=== PATIENT | female | born 1945 | race African-American/Black ===

== ENCOUNTER 2017-10-06 22:47 | Emergency (ER) | payer MEDICARE ==
--- NOTE | 2017-10-07 01:40 | Emergency Department Report ---
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 Mode of arrival: Stretcher Limitations: Language Barrier - History of Present Illness Initial comments: Family osmar patient states she is weak and get out of bed states it hurts to walk here for evaluation of weakness and not quite right today no history of chest pain no headache no stiff neck no fever generalized weakness -: hour(s) Location: generalized Severity: mild, moderate Associated Symptoms: denies: chest pain, dark stools, diaphoresis, easy bruising , fever/chills, headaches, loss of appetite, nausea/vomiting, myalgias, rash, shortness of breath, syncope - Related Data Home Medications Medication Instructions Recorded Confirmed Last Taken Aspirin [Aspirin TAB] 325 mg PO DAILY 01/24/14 12/03/14 Unknown Carvedilol [Coreg] 25 mg PO BID 01/24/14 12/03/14 Unknown Ranitidine HCl [Zantac] 150 mg PO BID 01/24/14 12/03/14 Unknown Zolpidem [Ambien] 5 mg PO QHS 01/24/14 12/03/14 Unknown metFORMIN [Glucophage] 850 mg PO TID 01/24/14 12/03/14 Unknown Ibuprofen [Motrin 400 MG tab] 400 mg PO Q8H PRN 12/03/14 12/03/14 Unknown Loratadine [Claritin] 10 mg PO QDAY 12/03/14 12/03/14 Unknown Previous Rx's Medication Instructions Recorded Last Taken Type Isosorbide Mononitrate [Isosorbide 60 mg PO QDAY #30 tab.er.24h 01/25/14 Unknown Rx Mononitrate ER (IMDUR)] Lisinopril [Zestril TAB] 10 mg PO QDAY #30 tablet 12/04/14 Unknown Rx Rosuvastatin (Nf) [Crestor] 20 mg PO QHS #30 tablet 12/04/14 Unknown Rx Cephalexin [Keflex] 500 mg PO Q6H #28 capsule 12/23/14 Unknown Rx glipiZIDE [glipiZIDE ER] 10 mg PO BID #60 tab.er.24 12/23/14 Unknown Rx Dicyclomine [Bentyl] 10 mg PO QID PRN #20 capsule 07/29/15 Unknown Rx Ondansetron [Zofran Odt] 4 mg PO QID PRN #20 tab.rapdis 07/29/15 Unknown Rx Cephalexin [Keflex] 500 mg PO Q6HR #28 capsule 10/07/17 Unknown Rx Allergies Allergy/AdvReac Type Severity Reaction Status Date / Time No Known Allergies Allergy Unverified 01/24/14 05:59 ED Review of Systems ROS: Stated complaint: UNABLE TO MOVE LEGS Other details as noted in HPI Comment: All other systems reviewed and negative Eyes: denies: eye discharge, vision change ENT: denies: dental pain, hearing loss, epistaxis Respiratory: denies: shortness of breath, SOB with exertion, SOB at rest, stridor, wheezing Cardiovascular: denies: chest pain, palpitations, dyspnea on exertion, orthopnea , edema, syncope, paroxysmal nocturnal dyspnea Gastrointestinal: denies: abdominal pain, nausea, vomiting, diarrhea, constipation, hematemesis, melena, hematochezia Neurological: weakness. denies: headache, numbness, paresthesias, confusion, abnormal gait, vertigo ED Past Medical Hx - Past Medical History Previous Medical History?: Yes Hx Hypertension: Yes Hx Heart Attack/AMI: Yes Hx Diabetes: Yes - Surgical History Past Surgical History?: Yes Hx Coronary Stent: Yes - Social History Smoking Status: Never Smoker Substance Use Type: None - Medications Home Medications: Home Medications Medication Instructions Recorded Confirmed Last Taken Type Aspirin [Aspirin TAB] 325 mg PO DAILY 01/24/14 12/03/14 Unknown History Carvedilol [Coreg] 25 mg PO BID 01/24/14 12/03/14 Unknown History Ranitidine HCl [Zantac] 150 mg PO BID 01/24/14 12/03/14 Unknown History Zolpidem [Ambien] 5 mg PO QHS 01/24/14 12/03/14 Unknown History metFORMIN [Glucophage] 850 mg PO TID 01/24/14 12/03/14 Unknown History Isosorbide Mononitrate [Isosorbide 60 mg PO QDAY #30 tab.er.24h 01/25/14 Unknown Rx Mononitrate ER (IMDUR)] Ibuprofen [Motrin 400 MG tab] 400 mg PO Q8H PRN 12/03/14 12/03/14 Unknown History Loratadine [Claritin] 10 mg PO QDAY 12/03/14 12/03/14 Unknown History Lisinopril [Zestril TAB] 10 mg PO QDAY #30 tablet 12/04/14 Unknown Rx Rosuvastatin (Nf) [Crestor] 20 mg PO QHS #30 tablet 12/04/14 Unknown Rx Cephalexin [Keflex] 500 mg PO Q6H #28 capsule 12/23/14 Unknown Rx glipiZIDE [glipiZIDE ER] 10 mg PO BID #60 tab.er.24 12/23/14 Unknown Rx Dicyclomine [Bentyl] 10 mg PO QID PRN #20 capsule 07/29/15 Unknown Rx Ondansetron [Zofran Odt] 4 mg PO QID PRN #20 tab.rapdis 07/29/15 Unknown Rx Cephalexin [Keflex] 500 mg PO Q6HR #28 capsule 10/07/17 Unknown Rx ED Physical Exam - General Limitations: Language Barrier General appearance: alert - Head Head exam: Present: atraumatic, normocephalic - Eye Eye exam: Present: PERRL, EOMI - ENT ENT exam: Present: normal exam, normal orophraynx - Neck Neck exam: Present: normal inspection. Absent: tenderness, meningismus - Respiratory Respiratory exam: Present: normal lung sounds bilaterally. Absent: respiratory distress, wheezes, rales, rhonchi, stridor, chest wall tenderness, accessory muscle use, decreased breath sounds, prolonged expiratory - Cardiovascular Cardiovascular Exam: Present: regular rate, normal heart sounds. Absent: rubs, gallop - GI/Abdominal GI/Abdominal exam: Present: soft. Absent: distended, tenderness, guarding, rebound, mass, bruit, pulsatile mass - Extremities Exam Extremities exam: Present: normal inspection. Absent: pedal edema, joint swelling, calf tenderness - Back Exam Back exam: Present: other (no warmth or erythema supple neck). Absent: CVA tenderness (R), CVA tenderness (L), paraspinal tenderness, vertebral tenderness - Neurological Exam Neurological exam: Present: alert, CN II-XII intact. Absent: motor sensory deficit - Skin Skin exam: Absent: diaphoretic, erythema, urticaria, vesicles, petechiae, pallor , abrasion, ecchymosis ED Course Vital Signs 10/06/17 10/07/17 10/07/17 23:34 00:01 01:00 Temperature 99.3 F Pulse Rate 72 72 70 Respiratory 12 17 17 Rate Blood Pressure 157/75 160/107 164/74 Blood Pressure 157/75 [Right] O2 Sat by Pulse 98 97 95 Oximetry - Reevaluation(s) Reevaluation #1: 10/07/17 04:25 Family states generalized weakness motor strength is equal family thinks having some pain when she tries to get out of bed and walk more that she was low but less responsive today and here with generalized weakness ED Medical Decision Making - Lab Data Result diagrams: 10/07/17 01:40 10/07/17 01:40 - EKG Data -: EKG Interpreted by Me EKG shows normal: sinus rhythm, ST-T waves (no acute ischemic change) - Radiology Data Radiology results: report reviewed - Medical Decision Making Troponin is negative CT head is no acute process chest x-rays negative abdominal CT and lumbar spine CT are chronic change patient is noted to have a UTI we will discharge her with antibiotics to see her regular doctor in 2 days no acute abdomen at this time no evidence of spinal cord compressive syndrome or other emergent process would require admission or further evaluation is noted at this time she is averse to 5 days follow-up Critical care attestation.: If time is entered above; I have spent that time in minutes in the direct care of this critically ill patient, excluding procedure time. ED Disposition Clinical Impression: UTI (urinary tract infection), Weakness Disposition: DC-01 TO HOME OR SELFCARE Is pt being admited?: No Does the pt Need Aspirin: No Condition: Stable Instructions: Weakness (ED), Urinary Tract Infection in Women (ED) Additional Instructions: return if worse Prescriptions: Cephalexin [Keflex] 500 mg PO Q6HR #28 capsule Referrals: CHRISTI ROBLES MD [Primary Care Provider] - 3-5 Days Time of Disposition: 04:30
[2017-10-07 02:11] LABS: Basophils % (Auto) 0.3 % (0.0-1.8); Eosinophils # (Auto) 0.1 K/mm3 (0.0-0.4); Hematocrit 33.9 % (30.3-42.9); Hemoglobin 11.6 gm/dl (10.1-14.3); Lymphocytes # (Auto) 1.7 K/mm3 (1.2-5.4); Lymphocytes % (Auto) 20.3 % (13.4-35.0); Mean Corpuscular HGB Conc 34 % (30-34); Mean Corpuscular Hemoglobin 31 pg (28-32); Mean Corpuscular Volume 90 fl (79-97); Monocytes # (Auto) 0.9 K/mm3 (0.0-0.8); Monocytes % (Auto) 11.4 % (0.0-7.3); Platelet Count 274 K/mm3 (140-440); Red Blood Count 3.75 M/mm3 (3.65-5.03); Red Cell Distribution Width 13.2 % (13.2-15.2)
[2017-10-07 02:20] LABS: Alanine Aminotransferase 18 units/L (7-56); Albumin 2.9 g/dL (3.9-5); BUN/Creatinine Ratio 37; Blood Urea Nitrogen 22 mg/dL (7-17); Hemolysis Index 6
--- NOTE | 2017-10-07 02:28 | XRay Report ---
FINAL REPORT PROCEDURE: XR CHEST 1V AP TECHNIQUE: Chest radiograph anteroposterior view. CPT 76313 HISTORY: Weakness COMPARISON: No prior studies are available for comparison. FINDINGS: Heart: Normal. Mediastinum/Vessels: Normal. Lungs/Pleural space: Lungs are clear and expanded. There are no infiltrates, effusions or pneumothoraces.. Bony thorax: No acute osseous abnormality. Life support devices: None. IMPRESSION: No acute cardiopulmonary abnormality.
--- NOTE | 2017-10-07 02:30 | Cat Scan Report ---
FINAL REPORT PROCEDURE: CT HEAD/BRAIN WO CON TECHNIQUE: Computerized tomography of the head was performed without contrast material. HISTORY: Weakness COMPARISON: No prior studies are available for comparison. FINDINGS: Skull and scalp: Normal. Paranasal sinuses: Normal. Ventricles and subarachnoid spaces: There is moderate central and cortical atrophy. There is no hydrocephalus.. Cerebrum: No evidence of hemorrhage, acute infarction or mass . Cerebellum and brainstem: No evidence of hemorrhage, acute infarction or mass. Vasculature: Normal. Comments: None. IMPRESSION: There is no acute intracranial abnormality.
[2017-10-07 02:46] LABS: Bilirubin,Urine NEG (Negative); Blood,Urine NEG (Negative); Color,Urine Yellow (Yellow); Mucus,Urine FEW /HPF; Nitrite,Urine NEG (Negative)
--- NOTE | 2017-10-07 02:46 | Cat Scan Report ---
FINAL REPORT PROCEDURE: CT ABDOMEN PELVIS WO CON TECHNIQUE: Computerized axial tomography of the abdomen and pelvis was performed without intravenous contrast. This study is performed without intravascular contrast material and its sensitivity for abdominal and pelvic pathology, including neoplasms, inflammation, abscess, free fluid, thrombosis, arterial dissection and infarction, is reduced compared with a contrast enhanced study. HISTORY: pain COMPARISON: No prior studies are available for comparison. FINDINGS: Visualized lower thorax: No significant abnormality. Liver: Normal size and attenuation. Spleen: Normal size and attenuation. Gallbladder and biliary system: There are gallstones. There is no cholecystitis or biliary ductal dilatation.. Pancreas: Normal. Adrenals: Normal. Kidneys: There are no kidney stones or ureteral stones. There is no hydronephrosis.. GI tract: There is no bowel obstruction, colitis or enteritis. The appendix is normal.. Lymph nodes and mesentery: Normal. Vasculature: There is calcified plaque in the abdominal aorta. There is no aneurysm.. Bladder: The urinary bladder is distended.. Reproductive organs: Normal. Peritoneum: There is no ascites or free air, abscess or adenopathy.. Musculoskeletal structures: No significant abnormality. Other: None. IMPRESSION: There are gallstones. There is no cholecystitis or biliary ductal dilatation.. There are no kidney stones or ureteral stones. There is no hydronephrosis.. There is no bowel obstruction, colitis or enteritis. The appendix is normal.. The urinary bladder is distended.. There is no ascites or free air, abscess or adenopathy.. .
--- NOTE | 2017-10-07 02:58 | Cat Scan Report ---
FINAL REPORT EXAM: CT LUMBAR SPINE WO CON HISTORY: pain COMPARISON: CT of the abdomen and pelvis from the same date. TECHNIQUE: Contiguous axial images were obtained. Additional sagittal and coronal reformatted images were obtained. FINDINGS: Lumbar vertebral body heights are preserved. No acute fracture traumatic subluxation. Marked osteopenia. Mild to moderate endplate osteophyte throughout the lumbar spine. Minimal loss of disc height L5-S1 level. Vacuum disc phenomena L4-L5 level. No significant canal or foraminal narrowing at the T12-L1 and L1-L2 levels. Mild facet changes mild broad-based disc bulge L2-L3 level causing mild canal stenosis and mild foraminal narrowing. L3-L4 level, broad-based disc bulge with facet changes and hypertrophy lumen flavum causing moderate canal stenosis and mild bilateral foraminal narrowing. L4-L5 level, there is a broad-based disc bulge with [id number] facet changes causing moderate canal stenosis. Mild foraminal narrowing bilaterally. L5-S1 level, broad-based disc bulge with endplate osteophyte and facet changes. Mild to moderate canal stenosis. Moderate to severe left and mild right foraminal narrowing. Visualized SI joints are grossly unremarkable. IMPRESSION: No acute fracture traumatic subluxation of the lumbar spine. Moderate degenerative changes of the lumbar spine most pronounced at the L4-L5 and L5-S1 levels. Moderate canal stenosis and mild foraminal narrowing at the L4-L5 level and mild to moderate canal stenosis with moderate severe left and mild right foraminal narrowing at the L5-S1 level.
[2017-10-07 04:31] VITALS: BP 142/45
[2017-10-07] MEDS ORDERED: TYLENOL PO ONE (04:45)
== END 2017-10-07 04:55 | disposition home or self-care (01) ==
LOC: ED 22:47
DX: R53.1 Weakness (principal); N39.0 Urinary tract infection, site not specified; I10 Essential (primary) hypertension; I25.2 Old myocardial infarction; E11.9 Type 2 diabetes mellitus without complications; Z95.818 Presence of other cardiac implants and grafts
CPT/HCPCS: 36415; 70450; 71045; 72131; 74176; 80053; 81001; 84484; 85025; 93005; 93010; 99285

== ENCOUNTER 2017-12-31 13:31 | Emergency (ER) | payer MEDICARE ==
[2017-12-31 14:48] LABS: BUN/Creatinine Ratio 22; Blood Urea Nitrogen 13 mg/dL (7-17); Calcium 9.7 mg/dL (8.4-10.2); Hemolysis Index 18
[2017-12-31 15:25] LABS: Basophils % (Auto) 0.7 % (0.0-1.8); Eosinophils # (Auto) 0.1 K/mm3 (0.0-0.4); Eosinophils % (Auto) 1.3 % (0.0-4.3); Hematocrit 36.5 % (30.3-42.9); Hemoglobin 12.1 gm/dl (10.1-14.3); Lymphocytes # (Auto) 1.7 K/mm3 (1.2-5.4); Lymphocytes % (Auto) 32.3 % (13.4-35.0); Mean Corpuscular HGB Conc 33 % (30-34); Mean Corpuscular Hemoglobin 30 pg (28-32); Mean Corpuscular Volume 90 fl (79-97); Monocytes # (Auto) 0.4 K/mm3 (0.0-0.8); Monocytes % (Auto) 8.1 % (0.0-7.3); Platelet Count 427 K/mm3 (140-440); Red Blood Count 4.08 M/mm3 (3.65-5.03); Red Cell Distribution Width 13.5 % (13.2-15.2)
[2017-12-31] MEDS ORDERED: XYLOCAINE 1% MPF 5 mL INFILTRATI ONE (16:09)
[2017-12-31] MEDS ORDERED: ROCEPHIN IM ONE (16:09)
--- NOTE | 2017-12-31 16:10 | Emergency Department Report ---
- General Chief complaint: Extremity Injury, Lower Stated complaint: LEFT FOOT PAIN Time Seen by Provider: 12/31/17 15:48 Source: family Mode of arrival: Ambulatory Limitations: Language Barrier - History of Present Illness Initial comments: Patient sent here by PCP for left foot pain and redness. -: week(s) (4) Location: L foot Severity: mild Severity scale (0 -10): 4 Quality: burning Consistency: constant Improves with: none Worsens with: palpation, movement Associated symptoms: denies other symptoms Treatments Prior to Arrival: none - Related Data Home Medications Medication Instructions Recorded Confirmed Last Taken Aspirin [Aspirin TAB] 325 mg PO DAILY 01/24/14 12/03/14 Unknown Carvedilol [Coreg] 25 mg PO BID 01/24/14 12/03/14 Unknown Ranitidine HCl [Zantac] 150 mg PO BID 01/24/14 12/03/14 Unknown Zolpidem [Ambien] 5 mg PO QHS 01/24/14 12/03/14 Unknown metFORMIN [Glucophage] 850 mg PO TID 01/24/14 12/03/14 Unknown Ibuprofen [Motrin 400 MG tab] 400 mg PO Q8H PRN 12/03/14 12/03/14 Unknown Loratadine [Claritin] 10 mg PO QDAY 12/03/14 12/03/14 Unknown Previous Rx's Medication Instructions Recorded Last Taken Type Isosorbide Mononitrate [Isosorbide 60 mg PO QDAY #30 tab.er.24h 01/25/14 Unknown Rx Mononitrate ER (IMDUR)] Lisinopril [Zestril TAB] 10 mg PO QDAY #30 tablet 12/04/14 Unknown Rx Rosuvastatin (Nf) [Crestor] 20 mg PO QHS #30 tablet 12/04/14 Unknown Rx Cephalexin [Keflex] 500 mg PO Q6H #28 capsule 12/23/14 Unknown Rx glipiZIDE [glipiZIDE ER] 10 mg PO BID #60 tab.er.24 12/23/14 Unknown Rx Dicyclomine [Bentyl] 10 mg PO QID PRN #20 capsule 07/29/15 Unknown Rx Ondansetron [Zofran Odt] 4 mg PO QID PRN #20 tab.rapdis 07/29/15 Unknown Rx Cephalexin [Keflex] 500 mg PO Q6HR #28 capsule 10/07/17 Unknown Rx Cephalexin [Keflex] 500 mg PO 6XD 7 Days #28 capsule 12/31/17 Unknown Rx Allergies Allergy/AdvReac Type Severity Reaction Status Date / Time No Known Allergies Allergy Unverified 01/24/14 05:59 Abscess Boil HPI - HPI Chief Complaint: Extremity Injury, Lower Stated Complaint: LEFT FOOT PAIN Time Seen by Provider: 12/31/17 15:48 Home Medications: Home Medications Medication Instructions Recorded Confirmed Last Taken Aspirin [Aspirin TAB] 325 mg PO DAILY 01/24/14 12/03/14 Unknown Carvedilol [Coreg] 25 mg PO BID 01/24/14 12/03/14 Unknown Ranitidine HCl [Zantac] 150 mg PO BID 01/24/14 12/03/14 Unknown Zolpidem [Ambien] 5 mg PO QHS 01/24/14 12/03/14 Unknown metFORMIN [Glucophage] 850 mg PO TID 01/24/14 12/03/14 Unknown Ibuprofen [Motrin 400 MG tab] 400 mg PO Q8H PRN 12/03/14 12/03/14 Unknown Loratadine [Claritin] 10 mg PO QDAY 12/03/14 12/03/14 Unknown Previous Rx's Medication Instructions Recorded Last Taken Type Isosorbide Mononitrate [Isosorbide 60 mg PO QDAY #30 tab.er.24h 01/25/14 Unknown Rx Mononitrate ER (IMDUR)] Lisinopril [Zestril TAB] 10 mg PO QDAY #30 tablet 12/04/14 Unknown Rx Rosuvastatin (Nf) [Crestor] 20 mg PO QHS #30 tablet 12/04/14 Unknown Rx Cephalexin [Keflex] 500 mg PO Q6H #28 capsule 12/23/14 Unknown Rx glipiZIDE [glipiZIDE ER] 10 mg PO BID #60 tab.er.24 12/23/14 Unknown Rx Dicyclomine [Bentyl] 10 mg PO QID PRN #20 capsule 07/29/15 Unknown Rx Ondansetron [Zofran Odt] 4 mg PO QID PRN #20 tab.rapdis 07/29/15 Unknown Rx Cephalexin [Keflex] 500 mg PO Q6HR #28 capsule 10/07/17 Unknown Rx Cephalexin [Keflex] 500 mg PO 6XD 7 Days #28 capsule 12/31/17 Unknown Rx Allergies/Adverse Reactions: Allergies Allergy/AdvReac Type Severity Reaction Status Date / Time No Known Allergies Allergy Unverified 01/24/14 05:59 ED Review of Systems ROS: Stated complaint: LEFT FOOT PAIN Other details as noted in HPI Comment: All other systems reviewed and negative Constitutional: denies: chills, fever Eyes: denies: eye pain, eye discharge, vision change ENT: denies: ear pain, throat pain Respiratory: denies: cough, shortness of breath, wheezing Cardiovascular: denies: chest pain, palpitations Endocrine: no symptoms reported Gastrointestinal: denies: abdominal pain, nausea, diarrhea Genitourinary: denies: urgency, dysuria, discharge Musculoskeletal: denies: back pain, joint swelling, arthralgia Skin: denies: rash, lesions Neurological: denies: headache, weakness, paresthesias Psychiatric: denies: anxiety, depression Hematological/Lymphatic: denies: easy bleeding, easy bruising ED Past Medical Hx - Past Medical History Previous Medical History?: Yes Hx Hypertension: Yes Hx Heart Attack/AMI: Yes Hx Diabetes: Yes - Surgical History Past Surgical History?: Yes Hx Coronary Stent: Yes - Social History Smoking Status: Never Smoker Substance Use Type: None - Medications Home Medications: Home Medications Medication Instructions Recorded Confirmed Last Taken Type Aspirin [Aspirin TAB] 325 mg PO DAILY 01/24/14 12/03/14 Unknown History Carvedilol [Coreg] 25 mg PO BID 01/24/14 12/03/14 Unknown History Ranitidine HCl [Zantac] 150 mg PO BID 01/24/14 12/03/14 Unknown History Zolpidem [Ambien] 5 mg PO QHS 01/24/14 12/03/14 Unknown History metFORMIN [Glucophage] 850 mg PO TID 01/24/14 12/03/14 Unknown History Isosorbide Mononitrate [Isosorbide 60 mg PO QDAY #30 tab.er.24h 01/25/14 Unknown Rx Mononitrate ER (IMDUR)] Ibuprofen [Motrin 400 MG tab] 400 mg PO Q8H PRN 12/03/14 12/03/14 Unknown History Loratadine [Claritin] 10 mg PO QDAY 12/03/14 12/03/14 Unknown History Lisinopril [Zestril TAB] 10 mg PO QDAY #30 tablet 12/04/14 Unknown Rx Rosuvastatin (Nf) [Crestor] 20 mg PO QHS #30 tablet 12/04/14 Unknown Rx Cephalexin [Keflex] 500 mg PO Q6H #28 capsule 12/23/14 Unknown Rx glipiZIDE [glipiZIDE ER] 10 mg PO BID #60 tab.er.24 12/23/14 Unknown Rx Dicyclomine [Bentyl] 10 mg PO QID PRN #20 capsule 07/29/15 Unknown Rx Ondansetron [Zofran Odt] 4 mg PO QID PRN #20 tab.rapdis 07/29/15 Unknown Rx Cephalexin [Keflex] 500 mg PO Q6HR #28 capsule 10/07/17 Unknown Rx Cephalexin [Keflex] 500 mg PO 6XD 7 Days #28 capsule 12/31/17 Unknown Rx ED Physical Exam - General Limitations: Language Barrier General appearance: alert, in no apparent distress - Head Head exam: Present: atraumatic, normocephalic - Eye Eye exam: Present: normal appearance - ENT ENT exam: Present: mucous membranes moist - Neck Neck exam: Present: normal inspection - Respiratory Respiratory exam: Present: normal lung sounds bilaterally. Absent: respiratory distress - Cardiovascular Cardiovascular Exam: Present: regular rate, normal rhythm. Absent: systolic murmur, diastolic murmur, rubs, gallop - GI/Abdominal GI/Abdominal exam: Present: soft, normal bowel sounds - Extremities Exam Extremities exam: Present: normal inspection - Expanded Lower Extremity Exam Left Foot/Toe exam: Present: tenderness, erythema Neuro vascular tendon exam: Present: no vascular compromise - Back Exam Back exam: Present: normal inspection - Neurological Exam Neurological exam: Present: alert, oriented X3 - Psychiatric Psychiatric exam: Present: normal affect, normal mood - Skin Skin exam: Present: warm, dry, intact, normal color. Absent: rash ED Course Vital Signs 12/31/17 13:36 Temperature 98.6 F Pulse Rate 86 Respiratory 16 Rate Blood Pressure 154/76 O2 Sat by Pulse 100 Oximetry - Reevaluation(s) Reevaluation #1: 12/31/17 16:08 No other complaints. Patient resting in bed comfortably. ED Medical Decision Making - Lab Data Result diagrams: 12/31/17 15:06 12/31/17 14:11 - Medical Decision Making Cellulitis of Left foot. Rx Abx Critical care attestation.: If time is entered above; I have spent that time in minutes in the direct care of this critically ill patient, excluding procedure time. ED Disposition Clinical Impression: Cellulitis of left foot Disposition: DC-01 TO HOME OR SELFCARE Is pt being admited?: No Does the pt Need Aspirin: No Condition: Stable Prescriptions: Cephalexin [Keflex] 500 mg PO 6XD 7 Days #28 capsule Referrals: PRIMARY CARE, [Primary Care Provider] - 3-5 Days
[2017-12-31 17:03] VITALS: BP 161/77
== END 2017-12-31 17:14 | disposition home or self-care (01) ==
LOC: ED 13:31
DX: L03.116 Cellulitis of left lower limb (principal); I10 Essential (primary) hypertension; I25.2 Old myocardial infarction
CPT/HCPCS: 36415; 80048; 85025; 96372; 99283; J0696

== ENCOUNTER 2020-07-06 19:02 | Emergency (ER) | payer OTHER, MEDICARE ==
[2020-07-06 20:04] LABS: Basophils % (Auto) 0.5 % (0.0-1.8); Eosinophils # (Auto) 0.1 K/mm3 (0.0-0.4); Eosinophils % (Auto) 1.7 % (0.0-4.3); Hematocrit 32.7 % (30.3-42.9); Hemoglobin 11.8 gm/dl (10.1-14.3); Lymphocytes # (Auto) 1.2 K/mm3 (1.2-5.4); Lymphocytes % (Auto) 20.5 % (13.4-35.0); Mean Corpuscular HGB Conc 36 % (30-34); Mean Corpuscular Volume 94 fl (79-97); Monocytes # (Auto) 0.4 K/mm3 (0.0-0.8); Monocytes % (Auto) 7.5 % (0.0-7.3); Platelet Count 278 K/mm3 (140-440); Red Blood Count 3.47 M/mm3 (3.65-5.03); Red Cell Distribution Width 13.2 % (13.2-15.2)
--- NOTE | 2020-07-06 20:13 | XRay Report ---
CHEST 1 VIEW 07/06/2020 7:39 PM INDICATION / CLINICAL INFORMATION: syncope. COMPARISON: CT chest dated 01/26/2020. FINDINGS: SUPPORT DEVICES: None. HEART / MEDIASTINUM: Stable. LUNGS / PLEURA: No significant pulmonary or pleural abnormality. No pneumothorax. ADDITIONAL FINDINGS: No significant additional findings. IMPRESSION: No acute cardiopulmonary abnormality. Signer Name: Ronaldo Orellana MD Signed: 07/06/2020 8:08 PM Workstation Name: [id number]
[2020-07-06 20:25] LABS: Calcium 8.6 mg/dL (8.4-10.2)
[2020-07-06 20:28] LABS: Alanine Aminotransferase 23 units/L (7-56); Albumin 2.9 g/dL (3.9-5); Bilirubin,Direct < 0.2 mg/dL (0-0.2); INR 0.92 (0.87-1.13); Partial Thromboplastin Time 23.9 Sec. (24.2-36.6)
[2020-07-06] MEDS ORDERED: SODIUM CHLORIDE 0.9% 1000 ML 1,000 ML IV ONE (20:35)
--- NOTE | 2020-07-06 23:43 | Emergency Department Report ---
ED Syncope HPI - General Chief Complaint: Syncope Stated Complaint: SYCOPAL EPISODE Time Seen by Provider: 07/06/20 19:22 Source: family Exam Limitations: language barrier - History of Present Illness Initial Comments: 74-year-old female, history of dementia, CAD with stents, diabetes presents to ED following syncopal episode at home. I spoke to patient's son who states that patient passed out while at home. Patient also complained of some chest pain. Dates she has had some decreased p.o. intake today being as much as she usually does. He denies patient has been having any fever, cough, shortness of breath, vomiting. Timing/Prior Episodes: single episode today Context: sitting Loss of Consciousness: brief (seconds) Current Symptoms: chest pain - Related Data Allergies/Adverse Reactions: Allergies No Known Allergies Allergy (Unverified 01/24/14 05:59) Home Medications: Ambulatory Orders Aspirin 325 mg PO DAILY 01/24/14 Zolpidem [Ambien] 5 mg PO QHS 01/24/14 carvediloL [Coreg] 25 mg PO BID 01/24/14 Isosorbide Mononitrate [Isosorbide Mononitrate ER (IMDUR)] 60 mg PO QDAY #30 tab.er.24h 01/25/14 Ibuprofen [Motrin 400 MG tab] 400 mg PO Q8H PRN 12/03/14 Loratadine (Nf) [Claritin (Nf)] 10 mg PO QDAY 12/03/14 Rosuvastatin (Nf) [Crestor] 20 mg PO QHS #30 tablet 12/04/14 lisinopriL [Zestril TAB] 10 mg PO QDAY #30 tablet 12/04/14 Dicyclomine [Bentyl] 10 mg PO QID PRN #20 capsule 07/29/15 Ondansetron [Zofran Odt] 4 mg PO QID PRN #20 tab.rapdis 07/29/15 metFORMIN [Glucophage] 850 mg PO BID #60 tablet 01/31/20 ED Review of Systems ROS: Stated complaint: SYCOPAL EPISODE Other details as noted in HPI Comment: All other systems reviewed and negative Constitutional: denies: fever Respiratory: denies: cough, shortness of breath Cardiovascular: chest pain Gastrointestinal: denies: vomiting ED Past Medical Hx - Past Medical History Previous Medical History?: Yes Hx Hypertension: Yes Hx Heart Attack/AMI: Yes Hx Diabetes: Yes Hx Dementia: Yes - Surgical History Past Surgical History?: Yes Hx Coronary Stent: Yes - Social History Smoking Status: Never Smoker - Medications Home Medications: Home Medications Medication Instructions Recorded Confirmed Last Taken Type Aspirin 325 mg PO DAILY 01/24/14 01/28/20 01/28/20 11:50 History Zolpidem [Ambien] 5 mg PO QHS 01/24/14 01/28/20 Unknown History carvediloL [Coreg] 25 mg PO BID 01/24/14 01/28/20 Unknown History Isosorbide Mononitrate [Isosorbide 60 mg PO QDAY #30 tab.er.24h 01/25/14 01/28/20 Unknown Rx Mononitrate ER (IMDUR)] Ibuprofen [Motrin 400 MG tab] 400 mg PO Q8H PRN 12/03/14 01/28/20 Unknown History Loratadine (Nf) [Claritin (Nf)] 10 mg PO QDAY 12/03/14 01/28/20 Unknown History Rosuvastatin (Nf) [Crestor] 20 mg PO QHS #30 tablet 12/04/14 01/28/20 Unknown Rx lisinopriL [Zestril TAB] 10 mg PO QDAY #30 tablet 12/04/14 01/28/20 01/27/20 Rx Dicyclomine [Bentyl] 10 mg PO QID PRN #20 capsule 07/29/15 01/28/20 Unknown Rx Ondansetron [Zofran Odt] 4 mg PO QID PRN #20 tab.rapdis 07/29/15 01/28/20 Unknown Rx metFORMIN [Glucophage] 850 mg PO BID #60 tablet 01/31/20 Unknown Rx ED Physical Exam - General Limitations: Language Barrier, Altered Mental Status General appearance: alert, in no apparent distress - Head Head exam: Present: atraumatic, normocephalic - Eye Eye exam: Present: normal appearance - ENT ENT exam: Present: mucous membranes moist - Neck Neck exam: Present: normal inspection - Respiratory Respiratory exam: Present: normal lung sounds bilaterally. Absent: respiratory distress - Cardiovascular Cardiovascular Exam: Present: regular rate, normal rhythm - GI/Abdominal GI/Abdominal exam: Present: soft. Absent: distended, tenderness - Extremities Exam Extremities exam: Present: normal inspection - Neurological Exam Neurological exam: Present: alert, other (moves all extremities, follows commands) - Psychiatric Psychiatric exam: Present: normal affect, normal mood - Skin Skin exam: Present: warm, dry, intact, normal color ED Course Vital Signs 07/06/20 07/06/20 07/06/20 19:30 19:46 19:56 Temperature 98.6 F Pulse Rate 77 77 82 Respiratory 17 12 20 Rate Blood Pressure 126/63 Blood Pressure 126/63 [Right] O2 Sat by Pulse 96 97 Oximetry 07/06/20 07/06/20 07/06/20 19:57 20:00 20:16 Temperature Pulse Rate 71 73 Respiratory 20 18 16 Rate Blood Pressure 126/63 121/67 Blood Pressure [Right] O2 Sat by Pulse 97 97 97 Oximetry 07/06/20 07/06/20 07/06/20 20:30 20:46 21:00 Temperature Pulse Rate 77 76 77 Respiratory 16 15 15 Rate Blood Pressure 121/67 121/67 121/67 Blood Pressure [Right] O2 Sat by Pulse 96 95 Oximetry 07/06/20 07/06/20 07/06/20 21:16 21:30 21:45 Temperature Pulse Rate 77 77 79 Respiratory 15 15 14 Rate Blood Pressure 115/58 115/58 115/58 Blood Pressure [Right] O2 Sat by Pulse 95 96 97 Oximetry - Consultations Consultation #1: 07/07/20 01:[address] Hooker at the [facility]. States patient will be transferred to [facility], accepting physician Dr. Adorno. Transportation to be arranged by [facility]. ED Medical Decision Making - Lab Data Result diagrams: 07/06/20 19:41 07/06/20 19:41 - EKG Data -: EKG Interpreted by Dc EKG shows normal: sinus rhythm, axis, intervals, QRS complexes, ST-T waves Rate: normal - EKG Data Interpretation: no acute changes - Radiology Data Radiology results: report reviewed, image reviewed - Medical Decision Making 74-year-old female presents to ED with syncope and chest pain. Vital signs are stable. EKG is an unremarkable for any ST changes. Troponin is negative x2. Potassium is mildly elevated at 5.3, however this may be due to slight hemolysis as renal function is normal. Chest x-ray is negative. D-dimer was elevated, so CTA chest was obtained, which is negative for any evidence of PE. Patient has [employer] insurance, so [facility] on-call was contacted and has arranged for transfer to [facility]. - Differential Diagnosis Dehydration, PE, ACS Critical care attestation.: If time is entered above; I have spent that time in minutes in the direct care of this critically ill patient, excluding procedure time. ED Disposition Clinical Impression: Syncope, Chest pain Disposition: [id number]/TX-[id number] ANOTHER TYPE [facility] Is pt being admited?: No Condition: Stable Instructions: Syncope (ED), Chest Pain (ED) Referrals: PRIMARY CARE, [Primary Care Provider] - 3-5 Days Time of Disposition: 01:24
[2020-07-07] MEDS ORDERED: ASPIRIN 325 MG TAB PO ONE (00:04)
--- NOTE | 2020-07-07 00:44 | Cat Scan Report ---
CT HEAD WITHOUT CONTRAST INDICATION: syncope. TECHNIQUE: All CT scans at this location are performed using CT dose reduction for ALARA by means of automated e xposure control. COMPARISON: CT 01/26/2020. FINDINGS: HEMORRHAGE: None. EXTRA-AXIAL SPACES: Normal in size and morphology for the patient's age. VENTRICULAR SYSTEM: Normal in size and morphology for the patient's age. BRAIN PARENCHYMA: No acute findings. MIDLINE SHIFT OR HERNIATION: None. ORBITS: Normal as visualized. SOFT TISSUES OF HEAD: Normal. CALVARIUM: Normal. VISUALIZED PARANASAL SINUSES AND MASTOID AIR CELLS: Clear. ADDITIONAL FINDINGS: None. IMPRESSION: 1. No acute intracranial abnormality. Signer Name: Bryn Blanc MD Signed: 07/07/2020 12:39 AM Workstation Name: [id number]
--- NOTE | 2020-07-07 00:53 | Cat Scan Report ---
CTA CHEST WITH IV CONTRAST INDICATION: chest pain, syncope. TECHNIQUE: Axial CT images were obtained through the chest after injection of IV contrast. 3 plane MIP reconstru ctions were produced. All CT scans at this location are performed using CT dose reduction for ALARA b y means of automated exposure control. COMPARISON: None available. FINDINGS: Pulmonary Arteries: No pulmonary emboli. Thoracic Aorta: No acute abnormality. Heart: Normal. Lungs: No acute air space or interstitial disease. There is a stable 6 mm perifissural nodule along t he minor fissure on series 2 image 53. Punctate density in the lateral right lower lobe on image 67 i s unchanged as well. Pleura: No pleural effusion. No pneumothorax. Lymph Nodes: No significant adenopathy. Additional Findings: None. Upper Abdomen: There is a punctate gallstone. There is mild dilatation of both renal pelvises. 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 There is a stable hypodense lesion in the spleen which is likely a cyst. Skeletal Structures: There is moderate compression deformity at the T10 vertebral body, this is new s salomón the prior CT. IMPRESSION: 1. No CT evidence for pulmonary embolism. 2. No acute pulmonary or pleural findings. Stable subcentimeter nodules as above. 3. New since the prior CT from January, there is moderate compression deformity at the T10 vertebral body . Signer Name: Bryn Blanc MD Signed: 07/07/2020 12:48 AM Workstation Name: [id number]
[2020-07-07 03:08] VITALS: BP 145/100
[2020-07-07] MEDS ORDERED: ASPIRIN 325 MG TAB ONE (03:26)
== END 2020-07-07 03:30 | disposition other institution (70) ==
LOC: ED 19:02
DX: R55 Syncope and collapse (principal); R07.9 Chest pain, unspecified; I25.10 Atherosclerotic heart disease of native coronary artery without angina pectoris; E11.9 Type 2 diabetes mellitus without complications; I10 Essential (primary) hypertension; I25.2 Old myocardial infarction; F03.90 Unspecified dementia, unspecified severity, without behavioral disturbance, psychotic disturbance, mood disturbance, and anxiety; Z95.5 Presence of coronary angioplasty implant and graft; Z79.899 Other long term (current) drug therapy
CPT/HCPCS: 36415; 70450; 71045; 71275; 80048; 80076; 84484; 85025; 85379; 85610; 85730; 93005; 96360; 96361; 99285; J7030; Q9967